=== PATIENT | male | born 1975 | race Caucasian/White ===

== ENCOUNTER 2021-05-31 02:34 | Emergency (ER) | payer BC ==
[~2021-05-31] VITALS: Ht 203.2 cm; Wt 122.7 kg
[2021-05-31 02:57] VITALS: TEMP 98.5
[2021-05-31 05:11] LABS: BASO % 0.2 % (0.0-2.0); GRAN # 5.1 K/mm3 (1.4-6.5); GRAN % 81.4 % (42.2-75.2); HEMOGLOBIN 13.4 g/dl (13.5-18.0); LYMPH # 0.8 K/mm3 (1.2-3.4); LYMPH % 12.1 % (20.0-51.0); MEAN CELL VOLUME 83 fl (80.0-100.0); MEAN CORPUSCULAR HEMOGLOBIN 29 pg (27-31); MEAN CORPUSCULAR HGB CONC 34 g/dl (33.0-37.0); MEAN PLATELET VOLUME 9.6 fl (7.4-10.4); MONO # 0.4 K/mm3 (0.1-0.6); MONO % 5.8 % (1.7-9.3); PLATELET COUNT 135 K/mm3 (130-400); RED BLOOD COUNT 4.71 M/mm3 (4.20-5.60)
[2021-05-31 05:24] LABS: BILIRUBIN,TOTAL 1.5 mg/dL (0.2-1.2); CALCIUM 8.2 mg/dL (8.4-10.2); CREATININE, serum 0.95 mg/dL (0.72-1.25); POTASSIUM 3.7 mmol/L (3.5-4.5); TOTAL PROTEIN 6.6 gm/dL (6.2-8.1)
[2021-05-31] MEDS ORDERED: ZOFRAN ODT4 MG PO (05:38)
[2021-05-31 07:10] VITALS: BP 120/80; PULSE 80
== END 2021-05-31 07:32 | disposition home or self-care (01) ==
LOC: COL.ER 02:34
PROVIDERS: Personal Emergency Response Attendant
DX: U07.1 COVID-19 (principal)
CPT/HCPCS: J2405; J7030

== ENCOUNTER 2021-06-02 09:56 | Emergency (ER) | payer BC ==
[~2021-06-02] VITALS: Ht 203.2 cm; Wt 120.5 kg
[~2021-06-02 09:56] MED LIST: ZOFRAN ODT4 MG PO
[2021-06-02 10:05] VITALS: TEMP 97.6
[2021-06-02 10:34] LABS: BASO % 0.3 % (0.0-2.0); EOS # 0.1 K/mm3 (0.0-0.7); EOS % 1.1 % (0.0-4.0); GRAN # 5.6 K/mm3 (1.4-6.5); GRAN % 84.3 % (42.2-75.2); HEMATOCRIT 39.8 % (42.0-52.0); HEMOGLOBIN 13.7 g/dl (13.5-18.0); LYMPH # 0.6 K/mm3 (1.2-3.4); LYMPH % 8.9 % (20.0-51.0); MEAN CELL VOLUME 83 fl (80.0-100.0); MEAN CORPUSCULAR HEMOGLOBIN 29 pg (27-31); MEAN CORPUSCULAR HGB CONC 34 g/dl (33.0-37.0); MEAN PLATELET VOLUME 9.6 fl (7.4-10.4); MONO # 0.3 K/mm3 (0.1-0.6); MONO % 4.8 % (1.7-9.3); PLATELET COUNT 168 K/mm3 (130-400); RED BLOOD COUNT 4.78 M/mm3 (4.20-5.60); REDCELL DISTRIBUTION WIDTH-CV 12.9 % (11.5-14.5)
[2021-06-02 10:54] LABS: ALBUMIN 2.6 gm/dL (3.5-5.0); C-REACTIVE PROTEIN 14.63 mg/dL (0.00-0.50); CALCIUM 8.3 mg/dL (8.4-10.2); CREATININE, serum 0.71 mg/dL (0.72-1.25); POTASSIUM 3.6 mmol/L (3.5-4.5); TOTAL PROTEIN 6.7 gm/dL (6.2-8.1)
[2021-06-02 10:59] LABS: TROPONIN-I 0.014 ng/mL (0.00-0.033)
[2021-06-02 13:44] VITALS: BP 124/64; PULSE 70
== END 2021-06-02 13:50 | disposition home or self-care (01) ==
LOC: COL.ER 09:56
PROVIDERS: Nurse Practitioner Primary Care
DX: U07.1 COVID-19 (principal)
CPT/HCPCS: Q9967